=== PATIENT | male | born 1990 | race Caucasian/White ===

== ENCOUNTER 2017-01-04 21:49 | Emergency (ER) | payer OTHER ==
[~2017-01-04] VITALS: Ht 170.2 cm; Wt 63.5 kg
[2017-01-04 21:49] VITALS: BP 132/71
[2017-01-04] MEDS ORDERED: IBUPROFEN 400 MG TABLET PO ONE (22:30)
--- NOTE | 2017-01-04 23:14 | NUR ---
Patient discharged to [employer] custody for transport to [facility] in stable condition. Written and verbal after care instructions given. Patient verbalizes understanding of instruction. Pt ambulatory with a steady gait. VSS, NAD noted on DC.
== END 2017-01-04 23:16 ==
LOC: ER 21:53
DX: S09.90XA Unspecified injury of head, initial encounter (principal); R51 Headache; Y04.0XXA Assault by unarmed brawl or fight, initial encounter; Y92.89 Other specified places as the place of occurrence of the external cause; Y93.89 Activity, other specified; Y99.8 Other external cause status
CPT/HCPCS: 70450; 99284; A4606 ×2; A6402; Z7610

== ENCOUNTER 2019-11-18 22:01 | Emergency (ER) | payer OTHER, MEDICAID ==
[~2019-11-18] VITALS: Ht 170.2 cm; Wt 72.6 kg
--- NOTE | 2019-11-18 22:17 | NUR ---
PT BIBRA 41 FROM [facility], PER [facility] NURSE PT TOOK 7 XANAX AND IS ON HEROIN. PT HAS BEEN IN CUSTODY. PT STATES HE TOOK HEROIN AND TAKES 1 TO 2 XANNAX A DAY. PT SPEAKING IN FULL SENTENCES WITHOUT ANY SPEECH IMPRERMENT. AAOX4. NO NEURO DEFICIT, PERRLA. VSS. [employer] AT BEDSIDE.
[2019-11-18] MEDS ORDERED: IV NS 0.9% 1,000 ML BAG IV ONE (22:30)
[2019-11-18] MEDS ORDERED: DEXTROSE 50%-WATER 50 ML DISP.SYRIN ONE (22:42)
[2019-11-18 22:49] LABS: BASOPHILS # (AUTO) 0.1 /CMM (0.0-0.2); HEMOGLOBIN 8.7 g/dL (13.5-17.5); LYMPHOCYTES # (AUTO) 2.6 /CMM (0.8-4.8); MEAN CORPUSCULAR VOLUME 65 fL (80-96); MONOCYTES # (AUTO) 1.1 /CMM (0.1-1.30)
[2019-11-18 22:52] LABS: BASOPHILS % (AUTO) 0.5 % (0.0-2.0); EOSINOPHILS % (AUTO) 3.2 % (0.0-6.0); HEMATOCRIT 30 % (39-51); LYMPHOCYTES % (AUTO) 21.4 % (20.0-44.0); MEAN CORPUSCULAR HGB CONC 30 g/dl (31.0-36.0); MONOCYTES % (AUTO) 9.4 % (2.0-12.0); NEUTROPHILS % (AUTO) 65.5 % (43.0-81.0); PLATELET COUNT (AUTO) 354 /CMM (150-450); RED BLOOD CELL COUNT(AUTO) 4.52 MIL/uL (4.5-6.0); WHITE BLOOD COUNT (AUTO) 12.2 K/uL (4.3-11.0)
[2019-11-18] MEDS ORDERED: DEXTROSE 50%-WATER 50 ML DISP.SYRIN IVP ONE (23:00)
[2019-11-18 23:03] LABS: CALCIUM, SERUM 9.1 mg/dL (8.5-10.1); CARBON DIOXIDE 31 mmol/L (21-32); CHLORIDE 106 mmol/L (98-107); CREATININE 0.8 mg/dL (0.6-1.3); GLUCOSE 92 mg/dL (74-106); POTASSIUM 4.2 mmol/L (3.5-5.1); SODIUM SERUM 142 mmol/L (136-145); UREA NITROGEN, BLOOD 14 mg/dL (7-18)
--- NOTE | 2019-11-18 23:11 | NUR ---
URINE COLLECTED AND SENT TO LAB
--- NOTE | 2019-11-18 23:12 | NUR ---
URINE COLLECTED AND SENT TO LAB
[2019-11-18 23:13] LABS: ALANINE AMINOTRANSFERASE 20 U/L (12-78); ALBUMIN 2.9 g/dL (3.4-5.0); ALKALINE PHOSPHATASE 103 U/L (46-116); ASPARTATE AMINOTRANSFERASE 26 U/L (15-37); BILIRUBIN,TOTAL 0.2 mg/dL (0.2-1.0); TOTAL PROTEIN, SERUM 7.4 g/dL (6.4-8.2)
[2019-11-18 23:16] LABS: APPEARANCE,URINE Clear (CLEAR); BILIRUBIN,URINE Negative (NEGATIVE); BLOOD, URINE Moderate Ery/uL (NEGATIVE); COLOR,URINE Yellow (YELLOW); KETONES,URINE Negative (NEGATIVE); LEUKOCYTE ESTERASE ,URINE Negative (NEGATIVE); NITRITE, URINE Negative (NEGATIVE); PROTEIN,URINE Negative (NEGATIVE); UGLUCOSE Negative (NEGATIVE); UROBILINOGEN,URINE 0.2 EU/dL (0.2)
[2019-11-18 23:17] LABS: ACETAMINOPHEN 0 ug/ml (10-30); ALCOHOL, BLOOD < 3 mg/dL (0-0); SALICYLATE 1.3 mg/dL (2.8-20.0)
--- NOTE | 2019-11-18 23:25 | NUR ---
BG 107 MD AWARE
--- NOTE | 2019-11-19 00:31 | NUR ---
PT AWAKE,VSS.
[2019-11-19 00:38] LABS: BACTERIA,URINE Few /HPF (None Seen); RBC,URINE 51-80 /HPF (0-2); SQUAMOUS EPITHELIAL CELL,UR Rare /HPF (None Seen)
--- NOTE | 2019-11-19 03:46 | NUR ---
PT RESTING. AWAKE WHEN BEING CALLED BY NAME
--- NOTE | 2019-11-19 11:00 | NUR ---
Patient in mate noted remain lethrgic but arousable vitals taken and filed [employer] police lieutenant @ bedside
--- NOTE | 2019-11-19 12:26 | NUR ---
Patient remain lethargic but arousable ,vitals taken and filed patient alert to name and self and stated would like to go to jail back MD aware ok to feed patient and and ambulate continue to monitor
--- NOTE | 2019-11-19 13:34 | NUR ---
OK to Booked per DR. Howard patient awake alert abl;e to ambulated agrees to follow up pmd in 2 days ,DC with police detective ,heplock removed notyed cath intact no edema no redness
[2019-11-19 13:42] VITALS: BP 133/89
== END 2019-11-19 13:34 ==
LOC: ER 22:03
DX: F19.10 Other psychoactive substance abuse, uncomplicated (principal)
CPT/HCPCS: 36415; 80048; 80076; 80305; 80307; 80329; 81001; 82962 ×3; 85025; 93005; 96374; 99284; G0480; J7030 ×2; 81000-TC